=== PATIENT | male | born 1955 | race Caucasian/White ===

== ENCOUNTER 2019-04-11 16:25 | Emergency (ER) | payer MEDICAID ==
[2019-04-11 16:28] VITALS: BP 171/89; PULSE 91; TEMP 99.4
== END 2019-04-11 18:13 | disposition home or self-care (01) ==
LOC: COL.ER 16:25
DX: S39.012A Strain of muscle, fascia and tendon of lower back, initial encounter (principal); S80.02XA Contusion of left knee, initial encounter; K21.9 Gastro-esophageal reflux disease without esophagitis; W10.9XXA Fall (on) (from) unspecified stairs and steps, initial encounter; Y92.59 Other trade areas as the place of occurrence of the external cause